=== PATIENT | female | born 2000 | race Caucasian/White ===

== ENCOUNTER 2020-08-24 15:10 | Emergency (ER) | payer BC, OTHER | END 2020-08-24 16:14 | disposition home or self-care (01) | LOC: ER1 15:10 | DX: M77.9 Enthesopathy, unspecified (principal); Z87.891 Personal history of nicotine dependence | CPT/HCPCS: 73600; 99283 ==

== ENCOUNTER 2021-01-31 16:37 | Emergency (ER) | payer OTHER, BC | END 2021-01-31 18:55 | disposition home or self-care (01) | LOC: ER1 16:37 | DX: R21 Rash and other nonspecific skin eruption (principal) | CPT/HCPCS: 72040; 72100; 76815; 99284; G0463 ==

== ENCOUNTER 2021-01-31 18:51 | Outpatient (CLI) | payer BC, OTHER | END 2021-01-31 21:24 | disposition home or self-care (01) | LOC: GENOP 18:51 | DX: Z04.1 Encounter for examination and observation following transport accident (principal); V89.2XXA Person injured in unspecified motor-vehicle accident, traffic, initial encounter | CPT/HCPCS: G0463 ==

== ENCOUNTER 2021-05-11 13:19 | Outpatient (CLI) | payer BC, OTHER ==
[~2021-05-11] VITALS: Ht 157.5 cm; Wt 59.9 kg
== END 2021-05-11 17:16 | disposition home or self-care (01) ==
LOC: GENOP 13:19
DX: O42.013 Preterm premature rupture of membranes, onset of labor within 24 hours of rupture, third trimester (principal); O36.8130 Decreased fetal movements, third trimester, not applicable or unspecified; O26.893 Other specified pregnancy related conditions, third trimester; R10.9 Unspecified abdominal pain; M54.9 Dorsalgia, unspecified; Z3A.35 35 weeks gestation of pregnancy
CPT/HCPCS: 59025; 81001; 82731; 83518; 87086; 96360; 96361; 96367; J0696

== ENCOUNTER → 2021-05-17 | Outpatient (CLI) | payer BC, OTHER | LOC: GENOP 15:31 | DX: O47.03 False labor before 37 completed weeks of gestation, third trimester (principal); Z3A.35 35 weeks gestation of pregnancy | CPT/HCPCS: G0463 ==

== ENCOUNTER 2021-06-10 16:21 | Inpatient (IN) | payer BC, OTHER ==
[~2021-06-10] VITALS: Ht 157.5 cm; Wt 61.7 kg
[2021-06-10 17:00] LABS: HEMOGLOBIN 12.6 gm/dl (12.3-15.3); RED BLOOD COUNT 3.9 M/UL (4.00-5.10)
[2021-06-10] MEDS ORDERED: OMEPRAZOLE20 MG PO (17:41)
[2021-06-10] MEDS ORDERED: FEROSUL325 MG PO (17:41)
[2021-06-11] MEDS ORDERED: FERROUS SULFAT325 MG PO (23:19)
[2021-06-11] MEDS ORDERED: IBUPROFEN600 MG PO (23:19)
[2021-06-11] MEDS ORDERED: COLACE 100MG C100 MG PO (23:19)
[2021-06-12 06:17] LABS: HEMOGLOBIN 8.9 gm/dl (12.3-15.3)
== END 2021-06-13 14:50 | disposition home or self-care (01) | DRG 806 ==
LOC: GENOP 16:21 → CDU 16:30 → OB 16:30
PROVIDERS: Obstetrics & Gynecology; ADMIT Obstetrics & Gynecology
PROC: 10E0XZZ Delivery of Products of Conception, External Approach (ICD-10-PCS; principal; 2021-06-11)
PROC: 10907ZC Drainage of Amniotic Fluid, Therapeutic from Products of Conception, Via Natural or Artificial Opening (ICD-10-PCS; 2021-06-11)
PROC: 4A1HXCZ Monitoring of Products of Conception, Cardiac Rate, External Approach (ICD-10-PCS; 2021-06-11)
PROC: 0HQ9XZZ Repair Perineum Skin, External Approach (ICD-10-PCS; 2021-06-11)
PROC: 3E0234Z Introduction of Serum, Toxoid and Vaccine into Muscle, Percutaneous Approach (ICD-10-PCS; 2021-06-11)
DX: O99.52 Diseases of the respiratory system complicating childbirth (principal); D62 Acute posthemorrhagic anemia; Z37.0 Single live birth; J45.909 Unspecified asthma, uncomplicated; O70.0 First degree perineal laceration during delivery; O72.1 Other immediate postpartum hemorrhage; Z20.822 Contact with and (suspected) exposure to COVID-19; O90.81 Anemia of the puerperium; Z3A.39 39 weeks gestation of pregnancy; Z23 Encounter for immunization
CPT/HCPCS: 36415; 81001; 85014; 85018; 85025; 85461; 86850; 86900; 86901; 90715; J2210; J2405; J2590; J2790; J7120; J7121